=== PATIENT | female | born 1985 | race Caucasian/White ===

== ENCOUNTER 2016-12-13 13:36 | Emergency (ER) | payer OTHER ==
[~2016-12-13] VITALS: Ht 170.2 cm; Wt 159.3 kg
[~2016-12-13 13:36] MED LIST: ALBU8.5H5 INH; ALBUTEROL; DOLU50TA PO; EMTR1TAB12 PO; FLONASE; RITO100T; SERT50TA5 PO; TRUVADA; [UNRECOGNIZED DRUG - OTHER]
[2016-12-13 13:39] VITALS: BP 131/87
== END 2016-12-13 14:47 | disposition home or self-care (01) ==
LOC: ED 14:42
DX: S93.621A Sprain of tarsometatarsal ligament of right foot, initial encounter (principal); X50.1XXA Overexertion from prolonged static or awkward postures, initial encounter; Y93.89 Activity, other specified; Y99.8 Other external cause status; Y92.009 Unspecified place in unspecified non-institutional (private) residence as the place of occurrence of the external cause
CPT/HCPCS: 99284

== ENCOUNTER 2018-10-16 09:03 | Emergency (ER) | payer OTHER ==
[~2018-10-16] VITALS: Ht 170.2 cm; Wt 91.5 kg
[~2018-10-16 09:03] MED LIST changes: -EMTR1TAB12 PO; +EMTR1TAB8 PO; +SERT50TA28 PO; -SERT50TA5 PO
--- NOTE | 2018-10-16 09:32 | NUR ---
PT ASSESSED. C/O LIGHTHEADEDNESS X 1 DAY. REPORTS HEAVY PERIOD OVER PAST 4 DAYS AND INCREASED BRUISING ON BLE. PT HAS HX HIV AND GASTRIC BYPASS SO WORRIED ABOUT ANEMIA AND ABNORMAL ELECTROLYTES. +NAUSEA. DENIES PAIN OR VOMITING/DIARRHEA. PT DENIES FEVER, CP AND SOB. WILL CONT TO MONITOR, CALL LIGHT WITHIN REACH. NAD
--- NOTE | 2018-10-16 09:43 | NUR ---
ORTHOSTATICS IN CHART, NEGATIVE PT AMBULATING STEADILY TO BR
[2018-10-16 10:01] LABS: BASOPHILS # (AUTO) 0.08 x10^3/uL (0-0.1); BASOPHILS % (AUTO) 1 % (0-1); EOSINOPHILS % (AUTO) 3 % (1-7); LYMPHOCYTES # (AUTO) 2.25 x10^3/uL (1-3.4); LYMPHOCYTES % (AUTO) 32 % (22-44); MD NO; MEAN CORPUSCULAR HEMOGLOBIN 31.7 pg (27.0-34.8); MEAN CORPUSCULAR HGB CONC 32.5 g/dL (32.4-35.8); MEAN CORPUSCULAR VOLUME 97.4 fL (80-100); MEAN PLATELET VOLUME 6.4 fL (7.4-10.4); MONOCYTES # (AUTO) 0.43 x10^3/uL (0.2-0.8); MONOCYTES % (AUTO) 6 % (2-9); NEUTROPHILS # (AUTO) 4.09 x10^3/uL (1.8-6.8); NEUTROPHILS % (AUTO) 58 % (42-75); PLATELET COUNT 288 x10^3/uL (130-400); RED CELL DISTRIBUTION WIDTH 13.8 % (9.6-15.2)
[2018-10-16 10:09] LABS: MICROSCOPIC INDICATED
[2018-10-16 10:12] LABS: ALBUMIN 3.4 g/dL (3.4-5.0); ANION GAP 6 mmol/L (5-15); CALCIUM 8.8 mg/dL (8.5-10.1); CHLORIDE 108 mmol/L (98-107); CREATININE 0.73 mg/dL (0.55-1.02)
--- NOTE | 2018-10-16 10:30 | NUR ---
PT TO CT VIA NELSON
[2018-10-16 10:33] LABS: CULTURE INDICATED? YES
--- NOTE | 2018-10-16 11:39 | NUR ---
ERP at BS discussing results with pt
[2018-10-16 12:02] VITALS: BP 114/65
== END 2018-10-16 12:06 | disposition home or self-care (01) ==
LOC: ED 11:22
DX: R55 Syncope and collapse (principal)
CPT/HCPCS: 36415; 70450; 80048; 81001; 82040; 83735; 84703; 85025; 87086; 93005; 99284

== ENCOUNTER 2019-05-11 14:52 | Emergency (ER) | payer OTHER ==
[2019-05-11 15:11] VITALS: BP 119/52
[2019-05-11] MEDS ORDERED: KETOROLAC 30 MG/1 ML IM ONE (15:30)
[2019-05-11] MEDS ORDERED: DIAZEPAM 5 MG TABLET PO ONE (15:30)
[2019-05-11] MEDS ORDERED: KETOROLAC 30 MG/1 ML ONE (15:33)
[2019-05-11] MEDS ORDERED: DIAZEPAM 5 MG TABLET ONE (15:33)
[2019-05-11] MEDS ORDERED: PLEASE ENTER HEIGHT AND WEIGHT MC SCH (16:01)
== END 2019-05-11 17:12 | disposition home or self-care (01) ==
LOC: ED 16:50
DX: M54.42 Lumbago with sciatica, left side (principal); Z21 Asymptomatic human immunodeficiency virus [HIV] infection status
CPT/HCPCS: 72110; 96372; 99283; J1885

== ENCOUNTER 2019-06-27 01:04 | Emergency (ER) | payer OTHER ==
[~2019-06-27] VITALS: Ht 170.2 cm; Wt 99.0 kg
[2019-06-27] MEDS ORDERED: ACETAMINOPHEN 500 MG TABLET ONE (01:28)
[2019-06-27] MEDS ORDERED: ONDANSETRON 2MG/ML, 2ML ONE (01:28)
[2019-06-27] MEDS ORDERED: SODIUM CHLORIDE 0.9% 1,000ML IVBOLUS ONE (01:30)
[2019-06-27] MEDS ORDERED: ACETAMINOPHEN 500 MG TABLET PO ONE (01:30)
[2019-06-27] MEDS ORDERED: ONDANSETRON 2MG/ML, 2ML IVPush ONE (01:30)
[2019-06-27 01:39] VITALS: BP 107/49
--- NOTE | 2019-06-27 01:43 | NUR ---
THIS IS A 34Y F THAT COMES IN TONIGHT WITH HER MOTHER. PT STS SHE HAS BEEN FEELING LIKE SHE HAS THE FLU SINCE THIS MORNING. PT REPORTS FEVER DESPITE TAKING TYLENOL MORE THAN 4 HOURS AGO. PT RESTING ON [place] DAMON. PT CONNECTED TO MONITORING, PIV STARTED, PT MEDICATED PER JUL, CALL LIGHT IN REACH
[2019-06-27 01:51] LABS: RAPID INFLUENZA A Negative (Negative); RAPID INFLUENZA B Negative (Negative)
== END 2019-06-27 02:32 | disposition home or self-care (01) ==
LOC: ED 02:25
DX: R11.2 Nausea with vomiting, unspecified (principal); E86.0 Dehydration; B34.9 Viral infection, unspecified; F17.200 Nicotine dependence, unspecified, uncomplicated; Z90.89 Acquired absence of other organs
CPT/HCPCS: 87400; 96361; 96374; 99283; J2405; J7030